=== PATIENT | male | born 1970 | race Caucasian/White ===

== ENCOUNTER → 2022-04-28 10:50 | Outpatient (CLI) | payer BC, SELFPAY ==
--- NOTE | ~2022-04-28 | US_ITS ---
EXAMINATION: US abdomen complete DATE: 04/28/2022 11:43 INDICATION: Abnormal liver enzymes. TECHNIQUE: Multiple grayscale and Doppler ultrasound images of the abdomen were obtained. COMPARISON: None available FINDINGS: Pancreas obscured by bowel gas. Liver is enlarged, with increased echogenicity and normal e chotexture. Simple liver cysts in the left and right lobes. Normal hepatopetal flow in the main spencer l vein. Status post cholecystectomy. The dilated common bile duct measures 10 mm, likely secondary to postcholecystectomy change. The visualized portions of the aorta are normal. IVC is obscured. The right kidney measures 11.8. The left kidney measures 12.5. The kidneys demonstrate normal parench ymal echogenicity. There is no hydronephrosis. The spleen is enlarged and measures 14.7 cm. IMPRESSION: 1. Hepatosplenomegaly, with likely steatosis. Increased liver echogenicity can also be seen with fibr osis and hepatitis. 2. Cholecystectomy with reservoir effect. 3. Pancreas and IVC obscured by bowel gas. Reviewed, dictated and finalized at location [facility]. IMPRESSION: 1. Hepatosplenomegaly, with likely steatosis. Increased liver echogenicity can also be seen with fibrosis and hepatitis. 2. Cholecystectomy with reservoir effect. 3. Pancreas and IVC obscured by bowel gas.
== END ==
PROVIDERS: PCP Physician Assistant; Visit Provider Physician Assistant
DX: R74.01 Elevation of levels of liver transaminase levels (principal); Z90.49 Acquired absence of other specified parts of digestive tract; R16.1 Splenomegaly, not elsewhere classified; R16.0 Hepatomegaly, not elsewhere classified
CPT/HCPCS: 76700

== ENCOUNTER 2023-07-08 08:27 | Outpatient (CLI) | payer BC, SELFPAY ==
--- NOTE | ~2023-07-08 | US_ITS ---
US right upper quadrant INDICATION: Fatty infiltration of the liver PROCEDURE: Realtime right upper abdominal ultrasound. COMPARISON: No prior studies for comparison. FINDINGS: The pancreas is normal without focal mass or pancreatic ductal dilation. Liver echotexture is increased, consistent with fatty infiltration. There are liver cysts, largest in the right hepati c lobe measuring 2.9 cm. There is normal directional flow in the portal vein. The gallbladder is surgically absent. Common bile duct measures 9.6 mm. No sonographic Lim's sig n. IMPRESSION: 1: Hepatic steatosis. Liver cysts. 2: Status post cholecystectomy with expected prominence of the common bile duct. Reviewed, dictated and finalized at location [facility]. IMPRESSION: 1: Hepatic steatosis. Liver cysts. 2: Status post cholecystectomy with expected prominence of the common bile lacey t.
== END 2023-07-08 08:28 ==
PROVIDERS: PCP Clinical Nurse Specialist; Visit Provider Clinical Nurse Specialist
DX: K76.0 Fatty (change of) liver, not elsewhere classified (principal); Z90.49 Acquired absence of other specified parts of digestive tract
CPT/HCPCS: 76705

== ENCOUNTER 2024-03-18 20:27 | Emergency (ER) | payer BC, SELFPAY ==
[2024-03-18] VITALS (19 sets, daily range): BP systolic 132–173; BP diastolic 66–75; PULSE 74–95; RESP 12–29; TEMP 36.6; O2SAT 95–100
--- NOTE | ~2024-03-18 | CT_ITS ---
CT of the Abdomen and Pelvis: Indication: Abdominal pain, elevated lipase Technique: 2.5 mm axial scans were obtained through the abdomen and pelvis following intravenous adm inistration of 100 cc of Omnipaque 350. Dose reduction technique was used on this scan by utilizing a utomated exposure control and iterative reconstruction technique. The dose-length product (DLP) was 1 629.00 mGy-cm. Findings: Scans through the lung bases demonstrate calcified right basilar granuloma. Liver is diffusely heterogeneous in attenuation, associated hepatomegaly, measuring 23 cm in cranioca udal length. Several hepatic cysts are present. Cholecystectomy clips present. The spleen, pancreas, adrenals and kidneys are within normal limits. No evidence of aortic aneurysm. No lymphadenopathy. No bowel obstruction or bowel wall thickening. There is no evidence to suggest acute appendicitis. Images through the pelvis were performed. Urinary bladder unremarkable. No pelvic mass seen. No ascit es. Large right hydrocele noted. Impression: Hepatomegaly with heterogeneous appearance of liver, with suggestion of innumerable hypodense lesions . Findings could be related to cirrhosis and dysplastic nodules, however underlying malignancy cannot be excluded. Reviewed, dictated and finalized at [facility]. Impression: Hepatomegaly with heterogeneous appearance of liver, with suggestion of innumer able hypodense lesions. Findings could be related to cirrhosis and dysplastic n odules, however underlying malignancy cannot be excluded.
[2024-03-18 21:36] LABS: Basophils Absolute Auto 0.1 K/mm3 (0.0-0.1); Basophils Percent Auto 0.5 % (0.2-1.2); Eosinophils Percent Auto 0.2 % (0-4.4); Hematocrit 43.3 % (42.0-52.0); Hemoglobin 15.4 g/dL (14.0-18.0); Immature Granulocyte Absolute 0.07 K/mm3 (0.00-0.031); Immature Granulocyte Percent A 0.5 % (0-0.5); Immature Platelet Fraction Pct 3.7 % (0.9-11.2); Lymphocytes Absolute Auto 1.02 K/mm3 (0.9-3.2); Mean Corpuscular HGB Conc 35.6 g/dl (32-36); Mean Corpuscular Hemoglobin 35.2 pg (26-34); Mean Corpuscular Volume 99.1 fl (80-100); Mean Platelet Volume 9.4 fl (7.4-10.4); Monocytes Absolute Auto 0.9 K/mm3 (0.1-0.6); Monocytes Percent Auto 6.9 % (2.6-8.5); Neutrophils Absolute Auto 10.7 K/mm3 (1.3-6.7); Neutrophils Percent Auto 83.9 % (45.5-73.1); Platelet Count Result 132 k/mm3 (150-375); Red Blood Count 4.37 M/mm3 (4.6-6.20); Red Cell Distribution Width 13.2 % (11.5-14.5); White Blood Count 12.7 K/mm3 (4.5-10.0)
[2024-03-18 21:42] LABS: Ethanol < 10 mg/dL (<10)
[2024-03-18] MEDS: chlordiazePOXIDE (*CRX) 25 MG CAPSULE PO (21:49)
[2024-03-18 21:53] LABS: Anion Gap 12 mmol/L (4-12); Blood Urea Nitrogen 11 mg/dL (9-20); Calcium 9.3 mg/dL (8.4-10.2); Carbon Dioxide 27 mmol/L (22-30); Chloride 90 mmol/L (98-107); Estimated CRCL calculation 131 ml/min; Estimated Glomerular Filt Rate > 60; Glucose 100 mg/dL (65-110); Potassium 2.8 mmol/L (3.4-5.0); Sodium 129 mmol/L (137-145)
[2024-03-18] MEDS: POTASSIUM CHLORIDE 20 MEQ ER TABLET 40 MEQ PO (22:19)
[2024-03-18] MEDS: PANTOPRAZOLE SODIUM IV 40 MG VIAL IV PUSH (22:21)
[2024-03-18] MEDS: ONDANSETRON INJ 4 MG/2 ML VIAL IV PUSH (22:21)
[2024-03-18] MEDS: KCL 20 MEQ/SW 100 ML 100 ML 50 MEQ IVPB (22:24)
[2024-03-18 23:06] LABS: Alanine Aminotransferase 98 U/L (6-50); Lipase 314 U/L (23-300)
[2024-03-19] VITALS (8 sets, daily range): BP systolic 136–165; BP diastolic 69–83; PULSE 76–85; RESP 14–22; O2SAT 93–98
--- NOTE | 2024-03-19 00:55 | ED.ALCOHOL ---
HPI - Alcohol General Chief Complaint: Alcohol Stated Complaint: alcohol withdrawal Time Seen by Provider: 03/18/24 21:41 History of Present Illness HPI narrative: patient with history of alcohol use disorder presents here because he is very anxious that he may be going into withdrawal, and he is also anxious that he had an episode of emesis earlier that was slightly brown. Last drink was yesterday. Being evaluated for detox tomorrow. Related Data Home Medications Medication Instructions Recorded Confirmed pantoprazole 40 mg tablet,delayed 40 mg PO QAM 11/30/22 02/13/24 release Allergies Allergy/AdvReac Type Severity Reaction Status Date / Time No Known Allergies Allergy Verified 03/18/24 21:24 Review of Systems Review of Systems: All systems reviewed & are unremarkable except as noted in HPI and below PMFSH Past Medical History Medical History Pancreatitis Pulmonary embolism Rash of groin Screening for metabolic disorder Skin cancer Family History Family History Mother Acute myocardial infarction Pancreatic cancer Social History Social History Smoking status: Never smoker Alcohol intake: current Drinks per week: 70 Alcohol use details: 10-20 drinks per day Substance use: never Lack of Transportation: No Lack of Food: Never True Current Housing: I Have Housing Concerned About Future Housing: No Difficulty Paying Gas/Electric Bills: No Difficulty Paying for Meds: No Currently Unemployed: No Education: Master's Degree or Higher Difficulty w/ Childcare or Family Care: No Exam Narrative: EXAMINATION OF ORGAN SYSTEMS/BODY AREAS: Constitutional: Vital signs per nursing GENERAL: Appears anxious HEAD: Normal with no signs of head trauma. EYES: EOMI, conjunctiva normal ENT: Hearing grossly intact LUNGS: Nonlabored breathing. HEART: [Regular rate and rhythm] ABD: [Soft], [nontender to palpation] EXT: Normal range of motion SKIN: [No rashes or lesions.] NEURO: [Alert and oriented x 3. No gross focal sensory or strength deficits.] PSYCH: anxious affect Course Vital Signs Vital signs: Vital Signs Temperature 97.9 F 03/18/24 20:39 Pulse Rate 88 03/18/24 20:39 Respiratory Rate 20 03/18/24 20:39 Blood Pressure 169/66 H 03/18/24 20:39 Pulse Oximetry 100 03/18/24 20:39 Oxygen Delivery Room Air 03/18/24 20:39 Temperature 97.9 F 03/18/24 20:39 Pulse Rate 85 03/19/24 01:15 Respiratory Rate 22 H 03/19/24 01:00 Blood Pressure 165/83 H 03/19/24 01:11 Pulse Oximetry 93 03/19/24 01:15 Oxygen Delivery Room Air 03/18/24 20:39 MDM - Alcohol MDM Narrative Medical decision making narrative: patient presents with anxiety, concern for possible withdrawal, with an episode of emesis that appeared brown earlier. Labs obtained here show mildly elevated liver enzymes and lipase I suspect from alcohol use, potassium is slightly low, this is repleted and repeat obtained. He does show hepatic lesions and possible early pancreatitis and liver lesions. I have discussed this with the patient including possibility for malignancy, he will follow-up with the GI. He is feeling much better, is no longer nauseous, has no further episodes of emesis here. I do feel he is stable for discharge at this time. Explanation for Librium titration given and patient agreeable to this with strict return precautions. Lab Data 03/18/24 21:25 03/19/24 00:45 Labs: Lab Results 03/18/24 03/19/24 Range/Units 21:25 00:45 WBC 12.7 H (4.5-10.0) K/mm3 RBC 4.37 L (4.6-6.20) M/mm3 Hgb 15.4 (14.0-18.0) g/dL Hct 43.3 (42.0-52.0) % MCV 99.1 (80-100) fl MCH 35.2 H (26-34) pg MCHC 35.6 (32-36) g/dl RDW 13.2 (11.5-14.5) % Plt
--- NOTE | 2024-03-19 01:51 | PC.NURSE ---
40meq potassium chloride PO given with water. Patient tolerated well. MAR is down at this time so unable to scan medication.
[2024-03-19 02:17] LABS: Alanine Aminotransferase 97 U/L (6-50); Albumin Level 3.6 g/dL (3.5-5.1); Alkaline Phosphatase 101 U/L (38-126); Anion Gap 9 mmol/L (4-12); Aspartate Amino Transferase 306 U/L (17-59); Bilirubin,Total 10.3 mg/dL (0.2-1.3); Blood Urea Nitrogen 11 mg/dL (9-20); Carbon Dioxide 27 mmol/L (22-30); Chloride 91 mmol/L (98-107); Estimated CRCL calculation 117 ml/min; Estimated Glomerular Filt Rate > 60; Glucose 103 mg/dL (65-110); Potassium 3.2 mmol/L (3.4-5.0); Sodium 127 mmol/L (137-145)
== END 2024-03-19 02:53 | disposition home or self-care (01) ==
PROVIDERS: Emergency Provider Emergency Medicine; PCP Internal Medicine
DX: F10.20 Alcohol dependence, uncomplicated (principal); F41.9 Anxiety disorder, unspecified; E87.6 Hypokalemia; K85.90 Acute pancreatitis without necrosis or infection, unspecified; Z86.711 Personal history of pulmonary embolism; Z85.828 Personal history of other malignant neoplasm of skin
CPT/HCPCS: 36415; 74177; 80048; 80053; 80307; 83690; 84460; 85025; 85055; 96365; 96366; 96375; 99284; A9270; C9113; J2405; J3480; Q9967